=== PATIENT | male | born 1945 | race Caucasian/White ===

== ENCOUNTER 2020-05-27 10:06 | Outpatient (CLI) | payer MEDICARE, BC ==
[2020-05-27] MEDS ORDERED: LAMO200T49 PO (10:58)
[2020-05-27] MEDS ORDERED: BRIM5DRO3 EACHEYE (10:58)
[2020-05-27] MEDS ORDERED: ATOR40TA78 PO (10:58)
[2020-05-27] MEDS ORDERED: VITA1TAB19 PO (10:58)
[2020-05-27] MEDS ORDERED: TIMO5DRO8 LEFTEYE (10:58)
[2020-05-27] MEDS ORDERED: ESOM20CA PO (10:58)
[2020-05-27] MEDS ORDERED: VIT1TABL32 PO (10:58)
[2020-05-27] MEDS ORDERED: FLUT9.9S NS (10:58)
[2020-05-27] MEDS ORDERED: Trintellix PO (10:58)
[2020-05-27] MEDS ORDERED: ASPI-496 PO (10:58)
[2020-05-27] MEDS ORDERED: CARB15DR3 EACHEYE (10:58)
[2020-05-27] MEDS ORDERED: IPRA15SP NS (10:58)
[2020-05-27] MEDS ORDERED: LATA2.5D3 RIGHTEYE (10:58)
[2020-05-27] MEDS ORDERED: NETA2.5D EACHEYE (10:58)
== END 2020-05-27 23:59 | disposition home or self-care (01) ==
LOC: STAR 10:06
PROVIDERS: ATTEND Otolaryngology
DX: Z01.818 Encounter for other preprocedural examination (principal); Z11.59 Encounter for screening for other viral diseases
CPT/HCPCS: 36415; 87635; 93005

== ENCOUNTER → 2020-06-17 | Outpatient (CLI) | payer MEDICARE, BC ==
[~2020-06-17] MED LIST: ASPI-496 PO; ATOR40TA78 PO; BRIM5DRO3 EACHEYE; CARB15DR3 EACHEYE; ESOM20CA PO; FLUT9.9S NS; IPRA15SP NS; LAMO200T49 PO; LATA2.5D3 RIGHTEYE; NETA2.5D EACHEYE; TIMO5DRO8 LEFTEYE; Trintellix PO; VIT1TABL32 PO; VITA1TAB19 PO
== END | disposition home or self-care (01) ==
LOC: STAR 14:23
PROVIDERS: ATTEND Anesthesiology
DX: Z01.812 Encounter for preprocedural laboratory examination (principal); Z20.828 Contact with and (suspected) exposure to other viral communicable diseases
CPT/HCPCS: 36415; 87635

== ENCOUNTER 2020-06-21 10:04 | Day surgery (SDC) | payer MEDICARE, BC ==
[~2020-06-21] VITALS: Ht 175.3 cm; Wt 66.8 kg
[~2020-06-21 10:04] MED LIST changes: +BACITRACIN 50,000 UNIT ONE; +BACITRACIN OINT 500U/GM, 15 GM ONE; +EPINEPHRINE TOPICAL SOLN 1 MG/ML, 30ML ONE; +FLUORESCEIN SODIUM 500 MG/5 ML ONE; +LIDOCAINE 1%-EPI 1:100K, 20ML ONE; +OXYMETAZOLINE NASAL SPRAY 0.05%, 15ML ONE
[2020-06-21] MEDS ORDERED: LACTATED RINGERS 1,000 ML IV SCH (10:41)
[2020-06-21 10:45] VITALS: BP 149/90
[2020-06-21] MEDS ORDERED: CHLORHEXIDINE 15 ML UDC MM ONE (11:00)
[2020-06-21] MEDS ORDERED: PHENYLEPHRINE 10 MG/ML ONE (11:47)
[2020-06-21] MEDS ORDERED: FENTANYL PF 250 MCG/5ML ONE (11:59)
[2020-06-21] MEDS ORDERED: ROCURONIUM 10MG/ML,5ML ONE (12:00)
[2020-06-21] MEDS ORDERED: GLYCOPYRROLATE 0.2MG/1ML, 5ML ONE (12:00)
[2020-06-21] MEDS ORDERED: ONDANSETRON 2MG/ML, 2ML ONE (12:00)
[2020-06-21] MEDS ORDERED: NEOSTIGMINE 1 MG/ML, 10ML ONE (12:00)
[2020-06-21] MEDS ORDERED: SUCCINYLCHOLINE 20 MG/ML, 10ML ONE (12:00)
[2020-06-21] MEDS ORDERED: DEXAMETHASONE 4 MG/ML, 1ML ONE (12:00)
[2020-06-21] MEDS ORDERED: PROPOFOL 10 MG/ML, 20ML ONE (12:00)
[2020-06-21] MEDS ORDERED: CEFAZOLIN 1,000 MG ONE (12:00)
[2020-06-21] MEDS ORDERED: PROPOFOL 50 ML ONE (12:01)
[2020-06-21] MEDS ORDERED: FLUORESCEIN SODIUM 500 MG/5 ML IV ONE (12:06)
[2020-06-21] MEDS ORDERED: LIDOCAINE 1%-EPI 1:100K, 20ML INFIL ONE (12:06)
[2020-06-21] MEDS ORDERED: EPINEPHRINE TOPICAL SOLN 1 MG/ML, 30ML TP ONE (12:06)
[2020-06-21] MEDS ORDERED: BACITRACIN 50,000 UNIT IRRIG ONE (12:23)
[2020-06-21] MEDS ORDERED: BACITRACIN OINT 500U/GM, 28GM TP ONE (12:23)
[2020-06-21] MEDS ORDERED: hydrALAzine 20 MG/ML, 1ML IV PRN (12:30)
[2020-06-21] MEDS ORDERED: HYDROmorphone 1 MG/ML, 1ML INJ IVPush PRN (12:30)
[2020-06-21] MEDS ORDERED: PROMETHAZINE 25 MG/ML, 1ML IVPush PRN (12:30)
[2020-06-21] MEDS ORDERED: OXYcodone 5 MG/5 ML ORAL.SOL UDC PO PRN (12:30)
[2020-06-21] MEDS ORDERED: MEPERIDINE/PF 25MG/0.5ML IVPush PRN (12:30)
[2020-06-21] MEDS ORDERED: ACETAMINOPHEN 325 MG TABLET PO PRN (12:30)
[2020-06-21] MEDS ORDERED: LABETALOL 5MG/ML, 20ML IV PRN (12:30)
[2020-06-21] MEDS ORDERED: FENTANYL PF 100 MCG/2ML IV PRN (12:30)
== END 2020-06-21 15:25 | disposition home or self-care (01) ==
LOC: OUT 10:04
PROVIDERS: ATTEND Otolaryngology
DX: B47.0 Eumycetoma (principal); J34.2 Deviated nasal septum; J32.0 Chronic maxillary sinusitis; H90.3 Sensorineural hearing loss, bilateral; J31.0 Chronic rhinitis; K21.9 Gastro-esophageal reflux disease without esophagitis; Z86.73 Personal history of transient ischemic attack (TIA), and cerebral infarction without residual deficits; Z98.890 Other specified postprocedural states; Z88.1 Allergy status to other antibiotic agents; Z79.899 Other long term (current) drug therapy; Z72.89 Other problems related to lifestyle
CPT/HCPCS: 30520; 31255; 31267; 87070; 87075; 87076; 87102; 87107; 87205; 88304; 88305; 88311; J0330; J0690; J1100; J2370; J2405; J2704; J2710; J3010; J3490; J7120

== ENCOUNTER 2020-06-28 08:54 | Day surgery (SDC) | payer MEDICARE, BC ==
[~2020-06-28] VITALS: Ht 175.3 cm; Wt 149.6 kg
[~2020-06-28 08:54] MED LIST changes: -BACITRACIN 50,000 UNIT ONE; -BACITRACIN OINT 500U/GM, 15 GM ONE; -EPINEPHRINE TOPICAL SOLN 1 MG/ML, 30ML ONE; -FLUORESCEIN SODIUM 500 MG/5 ML ONE; -LIDOCAINE 1%-EPI 1:100K, 20ML ONE
[2020-06-28 09:22] VITALS: BP 112/74
[2020-06-28] MEDS ORDERED: CHLORHEXIDINE 15 ML UDC MM ONE (09:30)
[2020-06-28] MEDS ORDERED: LIDOCAINE 4% TOPICAL SOLUTION 50 ML TP ONE (11:38)
== END 2020-06-28 12:10 | disposition home or self-care (01) ==
LOC: OUT 08:54
PROVIDERS: ATTEND Otolaryngology
DX: B47.0 Eumycetoma (principal); Z20.828 Contact with and (suspected) exposure to other viral communicable diseases; J32.0 Chronic maxillary sinusitis; J31.0 Chronic rhinitis
CPT/HCPCS: 87635